=== PATIENT | female | born 2000 | race American Indian/Alaskan Native ===

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

== ENCOUNTER 2020-09-15 10:34 | Emergency (ER) | payer SELFPAY ==
[2020-09-15 12:48] LABS: Basophils % (Auto) 0.5 % (0.0-1.8); Eosinophils # (Auto) 0.1 K/mm3 (0.0-0.4); Eosinophils % (Auto) 0.6 % (0.0-4.3); Hemoglobin 10.6 gm/dl (10.1-14.3); Lymphocytes # (Auto) 1.5 K/mm3 (1.2-5.4); Lymphocytes % (Auto) 15.2 % (13.4-35.0); Mean Corpuscular HGB Conc 31 % (30-34); Mean Corpuscular Volume 71 fl (79-97); Monocytes # (Auto) 0.7 K/mm3 (0.0-0.8); Platelet Count 283 K/mm3 (140-440); Red Blood Count 4.78 M/mm3 (3.65-5.03); Red Cell Distribution Width 16.4 % (13.2-15.2)
[2020-09-15 13:02] LABS: Alanine Aminotransferase 10 units/L (7-56); Albumin 3.8 g/dL (3.9-5); Blood Urea Nitrogen 7 mg/dL (7-17); Calcium 9.2 mg/dL (8.4-10.2); Hemolysis Index 40
[2020-09-15 13:15] LABS: BUN/Creatinine Ratio 23
--- NOTE | 2020-09-15 13:23 | Ultrasound Report ---
Limited OB Ultrasound HISTORY: Lower abdominal pain with . TECHNIQUE: Grayscale and color imaging performed. COMPARISON: Limited OB ultrasound from 12/12/2019 FINDINGS: There is a single viable intrauterine gestation with transverse presentation. DONTAE is 11 cm. Placenta is seen posteriorly. No evidence of placenta previa on this exam. Overall EGA by ultrasound is 16 weeks and 3 days with estimated delivery date of 02/27/2021. Cervical length is 3.2 cm. Heart rate is 152 bpm. IMPRESSION: Single viable intrauterine gestation as above on this limited exam. Signer Name: Reyes Broderick MD Signed: 09/15/2020 1:18 PM Workstation Name: [id number]
[2020-09-15 13:28] LABS: Bacteria,Urine 1+ /HPF (Negative); Bilirubin,Urine NEG (Negative); Blood,Urine NEG (Negative); Color,Urine Yellow (Yellow); Mucus,Urine 1+ /HPF; Protein,Urine <15 mg/dL mg/dL (Negative)
--- NOTE | 2020-09-15 14:01 | Emergency Department Report ---
ED Female HPI - General Chief complaint: Abdominal Pain Time Seen by Provider: 09/15/20 12:22 Source: patient Mode of arrival: Ambulatory Limitations: No Limitations - History of Present Illness Initial comments: 19-year-old -[place]vian female who presents to the emergency room for mild abdominal cramping in her lower abdomen. Patient states that is intermittent nothing makes it worse nothing makes it better. Patient reports that she thinks she is 3 months . Last known menstrual period was sometime in May 2020. Patient states she did start taking vitamins but is not followed by any LOGISTICS CLERK. Patient reports she does not have any known drug allergies does not smoke, does not smoke marijuana or drink alcohol. Patient had last delivery approximately 9 months ago with insufficient care. Patient states that she does not have insurance and does not have an ID and is having difficulty obtaining insurance without those credentials. Patient reports her last delivery she delivered as a . She denies any vaginal discharge vaginal bleeding. Denies any chest pain shortness of breathing nausea vomiting diarrhea. MD Complaint: pelvic pain - Related Data Previous Rx's Medication Instructions Recorded Last Taken Type Ibuprofen [Motrin] 600 mg PO Q8H PRN #60 tablet 12/15/19 Unknown Rx oxyCODONE /ACETAMINOPHEN [Percocet 1 tab PO Q6HR PRN #20 tablet 12/15/19 Unknown Rx 5/325] Acetaminophen [Acetaminophen TAB] 1,000 mg PO Q6HR PRN #30 tablet 12/28/19 Unknown Rx cephALEXin [Keflex] 500 mg PO Q8HR 7 Days #21 cap 12/28/19 Unknown Rx Allergies Allergy/AdvReac Type Severity Reaction Status Date / Time shellfish derived Allergy Anaphylaxis Verified 08/13/19 22:09 ED Review of Systems ROS: Stated complaint: Other details as noted in HPI ED Past Medical Hx - Past Medical History Previous Medical History?: Yes Hx Hypertension: No Hx Diabetes: No Hx Deep Vein Thrombosis: No Hx Renal Disease: No Hx Sickle Cell Disease: No Hx Seizures: No Hx Asthma: Yes Hx HIV: No - Social History Smoking Status: Never Smoker Substance Use Type: None - Medications Home Medications: Home Medications Medication Instructions Recorded Confirmed Last Taken Type Ibuprofen [Motrin] 600 mg PO Q8H PRN #60 tablet 12/15/19 Unknown Rx oxyCODONE /ACETAMINOPHEN [Percocet 1 tab PO Q6HR PRN #20 tablet 12/15/19 Unknown Rx 5/325] Acetaminophen [Acetaminophen TAB] 1,000 mg PO Q6HR PRN #30 tablet 12/28/19 Unknown Rx cephALEXin [Keflex] 500 mg PO Q8HR 7 Days #21 cap 12/28/19 Unknown Rx ED Physical Exam - General Limitations: No Limitations General appearance: alert, in no apparent distress - Head Head exam: Present: atraumatic, normocephalic - Eye Eye exam: Present: normal appearance - ENT ENT exam: Present: mucous membranes moist - Neck Neck exam: Present: normal inspection, full ROM - Respiratory Respiratory exam: Present: normal lung sounds bilaterally. Absent: respiratory distress - Cardiovascular Cardiovascular Exam: Present: regular rate, normal rhythm. Absent: systolic murmur, diastolic murmur, rubs, gallop - GI/Abdominal GI/Abdominal exam: Present: soft, normal bowel sounds. Absent: distended, tende rness - Extremities Exam Extremities exam: Present: normal inspection - Back Exam Back exam: Present: normal inspection - Neurological Exam Neurological exam: Present: alert, oriented X3, normal gait - Psychiatric Psychiatric exam: Present: normal affect, normal mood - Skin Skin exam: Present: warm, dry, intact, normal color. Absent: rash ED Course Vital Signs 09/15/20 13:18 Temperature 98.2 F Pulse Rate 83 Respiratory 16 Rate Blood Pressure 112/65 [Left] O2 Sat by Pulse 100 Oximetry ED Medical Decision Making - Lab Data Result diagrams: 09/15/20 12:28 09/15/20 12:28 Laboratory Tests 09/15/20 09/15/20 09/15/20 12:28 12:28 12:28 WBC 10.0 RBC 4.78 Hgb 10.6 Hct 34.0 MCV 71 L MCH 22 L MCHC 31 RDW 16.4 H Plt Count 283 Lymph % (Auto) 15.2 [place] % (Auto) 7.0 Eos % (Auto) 0.6 Baso % (Auto) 0.5 Lymph # (Auto) 1.5 [place] # (Auto) 0.7 Eos # (Auto) 0.1 Baso # (Auto) 0.0 Seg Neutrophils % 76.7 H Seg Neutrophils # 7.7 Sodium 134 L Potassium 4.1 Chloride 100.2 Carbon Dioxide 20 L Anion Gap 18 BUN 7 Creatinine 0.3 L Estimated GFR > 60 BUN/Creatinine Ratio 23 Glucose 77 Calcium 9.2 Total Bilirubin 0.20 AST 19 ALT 10 Alkaline Phosphatase 87 Total Protein 7.2 Albumin 3.8 L Albumin/Globulin Ratio 1.1 HCG, Quant 72388 H Urine Color Urine Turbidity Urine pH Ur Specific [place]ucks Urine Protein Urine Glucose (UA) Urine Ketones Urine Blood Urine Nitrite Urine Bilirubin Urine Urobilinogen Ur Leukocyte Esterase Urine WBC (Auto) Urine RBC (Auto) U Epithel Cells (Auto) Urine Bacteria (Auto) Urine Mucus 09/15/20 Unknown WBC RBC Hgb Hct MCV MCH MCHC RDW Plt Count Lymph % (Auto) [place] % (Auto) Eos % (Auto) Baso % (Auto) Lymph # (Auto) [place] # (Auto) Eos # (Auto) Baso # (Auto) Seg Neutrophils % Seg Neutrophils # Sodium Potassium Chloride Carbon Dioxide Anion Gap BUN Creatinine Estimated GFR BUN/Creatinine Ratio Glucose Calcium Total Bilirubin AST ALT Alkaline Phosphatase Total Protein Albumin Albumin/Globulin Ratio HCG, Quant Urine Color Yellow Urine Turbidity Slightly-cloudy Urine pH 6.0 Ur Specific [place]ucks 1.023 Urine Protein <15 mg/dl Urine Glucose (UA) Neg Urine Ketones Neg Urine Blood Neg Urine Nitrite Neg Urine Bilirubin Neg Urine Urobilinogen 2.0 Ur Leukocyte Esterase Neg Urine WBC (Auto) 1.0 Urine RBC (Auto) 1.0 U Epithel Cells (Auto) 7.0 Urine Bacteria (Auto) 1+ Urine Mucus 1+ - Radiology Data Radiology results: report reviewed [facility] [address] [place] [address] Ultrasound Report Signed Patient: PARUL OLIVA MR#: [id number] : 2000 Acct:[id number] Age/Sex: 19 / F ADM Date: 09/15/20 Loc: ED Attending Dr: Ordering Physician: KAL WHITNEY Date of Service: 09/15/20 Procedure(s): US OB limited Accession Number(s): [id number] cc: KAL WHITNEY Limited OB Ultrasound HISTORY: Lower abdominal pain with . TECHNIQUE: Grayscale and color imaging performed. COMPARISON: Limited OB ultrasound from 12/12/2019 FINDINGS: There is a single viable intrauterine gestation with transverse pres entation. DONTAE is 11 cm. Placenta is seen posteriorly. No evidence of placenta previa on this exam. Overall EGA by ultrasound is 16 weeks and 3 days with estimated delivery date of 02/27/2021. Cervical length is 3.2 cm. Heart rate is 152 bpm. IMPRESSION: Single viable intrauterine gestation as above on this limited exam. Signer Name: Reyes Broderick MD Signed: 09/15/2020 1:18 PM Workstation Name: [id number] Transcribed By: KATERIN Dictated By: Reyes Broderick MD Electronically Authenticated By: Reyes Broderick MD Signed Date/Time: 09/15/201317 DD/ 16 TD/TT: Print Cancel - Medical Decision Making 19-year-old -[place]vian female who presents to the emergency room for mild abdominal cramping in her lower abdomen. Patient states that is intermittent nothing makes it worse nothing makes it better. Patient reports that she thinks she is 3 months . Last known menstrual period was sometime in May 2020. Patient states she did start taking vitamins but is not followed by any LOGISTICS CLERK. Patient reports she does not have any known drug allergies does not smoke, does not smoke marijuana or drink alcohol. Patient had last delivery approximately 9 months ago with insufficient care. Patient states that she does not have insurance and does not have an ID and is having difficulty obtaining insurance without those credentials. Patient reports her last delivery she delivered as a . She denies any vaginal discharge vaginal bleeding. Denies any chest pain shortness of breathing nausea vomiting diarrhea. Patient's ultrasound show that she is 16 weeks and 3 days . Urinalysis is negative for any infection blood work is negative for any anemia. Discussed with patient she needs to follow-up with the LOGISTICS CLERK. Continue with her vitamins. Only pain medicine can take is Tylenol. Increase your water intake. Critical care attestation.: If time is entered above; I have spent that time in minutes in the direct care of this critically ill patient, excluding procedure time. ED Disposition Clinical Impression: Qualifiers: Weeks of gestation: 16 weeks Qualified Code(s): Z3A.16 - 16 weeks gestation of Disposition: DC-01 TO HOME OR SELFCARE Is pt being admited?: No Does the pt Need Aspirin: No Condition: Stable Instructions: Abdominal Pain (ED), Second Trimester of , [id number], and Vaccinations, Care Additional Instructions: Patient's ultrasound show that she is 16 weeks and 3 days . Urinalysis is negative for any infection blood work is negative for any anemia. Discussed with patient she needs to follow-up with the LOGISTICS CLERK. Continue with her vitamins. Only pain medicine can take is Tylenol. Increase your water intake. Referrals: PRIMARY CAREMD [Primary Care Provider] - 3-5 Days [facility] [Provider Group] - 3-5 Days [facility] [Provider Group] - 3-5 Days [facility] [Provider Group] - 3-5 Days [facility] [Outside] - 3-5 Days Forms: Work/School Release Form(ED)
[2020-09-15 14:29] VITALS: BP 128/73
== END 2020-09-15 14:29 | disposition home or self-care (01) ==
LOC: ED 10:34 → TRG 10:34 → APU 10:35 → TRG 10:35 → EDSTATUS 10:53 → ED 14:29
DX: O26.892 Other specified pregnancy related conditions, second trimester (principal); R10.30 Lower abdominal pain, unspecified; Z79.899 Other long term (current) drug therapy; Z91.013 Allergy to seafood; Z3A.16 16 weeks gestation of pregnancy
CPT/HCPCS: 36415; 76815; 80053; 81001; 84702; 85025

== ENCOUNTER 2021-01-09 10:01 | Outpatient (CLI) | payer OTHER ==
[2021-01-09] MEDS ORDERED: LACTATED RINGERS 500 ML IV ONE (10:38)
[2021-01-09 11:40] LABS: Bacteria,Urine 1+ /HPF (Negative); Bilirubin,Urine NEG (Negative); Blood,Urine NEG (Negative); Color,Urine Yellow (Yellow); Mucus,Urine FEW /HPF
[2021-01-09] MEDS ORDERED: TERBUTALINE 1 MG/1 ML INJ SUB-Q ONE ×2 (11:54→15:43)
[2021-01-09] MEDS ORDERED: LACTATED RINGERS 1,000 ML IV ONE (12:30)
[2021-01-09] MEDS ORDERED: LACTATED RINGERS 1,000 ML IV SCH (13:00)
[2021-01-09 13:47] LABS: Amphetamine Screen,Urine Negative; Benzodiazepines Screen,Urine Negative; Cocaine Screen,Urine Negative; Methadone Screen,Urine Negative; Opiate Screen,Urine Negative
[2021-01-09] MEDS ORDERED: TERBUTALINE 1 MG/1 ML INJ ONE (14:08)
[2021-01-09 14:27] LABS: Cannabinoid Screen,Urine Positive
[2021-01-09 15:34] VITALS: BP 114/54
== END 2021-01-09 16:45 | disposition home or self-care (01) ==
LOC: TRG 10:01 → APU 10:03 → TRG 16:45
PROVIDERS: ATTEND Obstetrics & Gynecology
DX: O26.893 Other specified pregnancy related conditions, third trimester (principal); R10.30 Lower abdominal pain, unspecified; Z3A.33 33 weeks gestation of pregnancy
CPT/HCPCS: 59025; 80307; 81001; 87086; 96360; 96372; J3105; J7120; 96361

== ENCOUNTER 2021-09-25 19:49 | Emergency (ER) | payer MEDICAID ==
[2021-09-26 02:44] LABS: Mean Corpuscular HGB Conc 31 % (30-34); Mean Corpuscular Volume 71 fl (79-97); Platelet Count 232 K/mm3 (140-440); Red Blood Count 5.11 M/mm3 (3.65-5.03); Red Cell Distribution Width 18.2 % (13.2-15.2)
[2021-09-26 02:45] LABS: Hematocrit 36.3 % (30.3-42.9); Hemoglobin 11.1 gm/dl (10.1-14.3)
[2021-09-26 02:59] LABS: Blood Urea Nitrogen 6 mg/dL (7-17); Calcium 9.6 mg/dL (8.4-10.2); Hemolysis Index 4
[2021-09-26 03:03] LABS: Bilirubin,Urine Negative (Negative); Color,Urine Red (Yellow)
[2021-09-26 03:04] LABS: BUN/Creatinine Ratio 15
[2021-09-26 03:04] LABS: Blood,Urine Large (Negative); PH,Urine 7.5 (5.0-7.0); Urobilinogen,Urine 0.2 mg/dL (<2.0)
[2021-09-26 03:08] LABS: RBC,Urine > 182.0 /HPF (0.0-6.0)
[2021-09-26] MEDS ORDERED: ACETAMINOPHEN 325 MG TAB PO ONE (03:20)
--- NOTE | 2021-09-26 03:20 | Emergency Department Report ---
ED General Adult HPI - General Chief complaint: Abdominal Pain Stated complaint: ABD PAIN,BLOOD CLOTS Time Seen by Provider: 09/26/21 02:19 Source: patient, RN notes reviewed Mode of arrival: Stretcher Limitations: No Limitations - History of Present Illness Initial comments: The patient was evaluated in the emergency department for symptoms described in the history of present illness. He/she was evaluated in the context of the global COVID-19 pandemic, which necessitated consideration that the patient might be at risk for infection with the virus that causes COVID-19. Institutional protocols and algorithms that pertain to the evaluation of gilberto ents at risk for COVID-19 are in a state of rapid change based on information released by regulatory bodies including the CDC and federal and state organizations. These policies and algorithms were followed during the patient's care in the emergency department. Please note that these policies, procedures and recommendations changed on a rapid basis. This is a pleasant and cooperative 20-year-old female, who is 3, para 2, who believes that she is approximately 12 weeks , but has not established outpatient care, who has not had an outpatient ultrasound, presenting to the department today with cramping, and vaginal bleeding. No dysuria. No additional complaints. -: days(s) Location: abdomen Radiation: non-radiation Quality: aching Consistency: intermittent Improves with: rest Worsens with: movement - Related Data Previous Rx's Medication Instructions Recorded Last Taken Type Acetaminophen [Acetaminophen TAB] 1,000 mg PO Q6HR PRN #30 tablet 12/28/19 Unknown Rx Acetaminophen [Non-Aspirin Extra 500 mg PO Q6HR PRN #30 tablet 09/26/21 Unknown Rx Strength] Doxylamine Succinate/Vit B6 1 each PO QHS PRN #30 tablet. 09/26/21 Unknown Rx [Madeleine Valdovinos 10-10 mg Tablet] Emely Root [Emely] 250 mg PO QID PRN #30 capsule 09/26/21 Unknown Rx Allergies Allergy/AdvReac Type Severity Reaction Status Date / Time shellfish derived Allergy Anaphylaxis Verified 08/13/19 22:09 ED Review of Systems ROS: Stated complaint: ABD PAIN,BLOOD CLOTS Other details as noted in HPI Comment: All other systems reviewed and negative Gastrointestinal: abdominal pain Genitourinary: other (Vaginal bleeding and clots). denies: dysuria Psychiatric: anxiety ED Past Medical Hx - Past Medical History Hx Hypertension: No Hx Diabetes: No Hx Deep Vein Thrombosis: No Hx Renal Disease: No Hx Sickle Cell Disease: No Hx Seizures: No Hx Asthma: Yes (last attack as a child) Hx HIV: No - Social History Smoking Status: Never Smoker - Medications Home Medications: Home Medications Medication Instructions Recorded Confirmed Last Taken Type Acetaminophen [Acetaminophen TAB] 1,000 mg PO Q6HR PRN #30 tablet 12/28/19 Unknown Rx Acetaminophen [Non-Aspirin Extra 500 mg PO Q6HR PRN #30 tablet 09/26/21 Unknown Rx Strength] Doxylamine Succinate/Vit B6 1 each PO QHS PRN #30 tablet. 09/26/21 Unknown Rx [Diclegis Dr 10-10 mg Tablet] Emely Root [Emely] 250 mg PO QID PRN #30 capsule 09/26/21 Unknown Rx ED Physical Exam - General Limitations: No Limitations, Other (Patient eating potato chips and in no acute distress) General appearance: alert, in no apparent distress, obese - Head Head exam: Present: atraumatic, normocephalic - Eye Eye exam: Present: normal appearance, EOMI. Absent: nystagmus - ENT ENT exam: Present: normal exam, normal orophraynx, mucous membranes moist, normal external ear exam - Neck Neck exam: Present: normal inspection, full ROM. Absent: tenderness, meningismus - Respiratory Respiratory exam: Present: normal lung sounds bilaterally. Absent: respiratory distress, wheezes, rales, rhonchi, stridor, decreased breath sounds - Cardiovascular Cardiovascular Exam: Present: regular rate, normal rhythm, normal heart sounds. Absent: bradycardia, tachycardia, irregular rhythm, systolic murmur, diastolic murmur, rubs, gallop - GI/Abdominal GI/Abdominal exam: Present: soft. Absent: distended, tenderness, guarding, rebound, rigid, pulsatile mass - Extremities Exam Extremities exam: Present: normal inspection, full ROM, normal capillary refill, other (2+ pulses noted in the bilateral upper and lower extremities. There is no palpable cord. negative Homans sign. Muscular compartments are soft. The pelvis is stable.). Absent: pedal edema, calf tenderness - Back Exam Back exam: Present: normal inspection. Absent: tenderness, CVA tenderness (R), CVA tenderness (L), paraspinal tenderness, vertebral tenderness - Neurological Exam Neurological exam: Present: alert, oriented X3, other (No facial droop. Tongue midline. Extraocular movements intact bilaterally. Facial sensation intact to light touch in V1, V2, V3 distribution bilaterally. 5 and a 5 strength in 4 extremities. Sensation intact to light touch in 4 extremities.). Absent: motor sensory deficit - Psychiatric Psychiatric exam: Present: normal affect, normal mood - Skin Skin exam: Present: warm, dry, intact, normal color. Absent: rash ED Course Vital Signs 09/25/21 09/26/21 09/26/21 21:32 03:20 03:53 Temperature 98.1 F 98.3 F Pulse Rate 80 67 Respiratory 16 18 Rate Blood Pressure 115/48 131/51 [Right] O2 Sat by Pulse 99 100 Oximetry O2 Sat by Pulse 99 Oximetry [ Digit-Finger] - Reevaluation(s) Reevaluation #1: 09/26/21 03:53 Differential diagnosis, including but not limited to: Threatened miscarriage, complete miscarriage, incomplete miscarriage Assessment and plan: 20-year-old female, with positive hCG, lower abdominal cramping and vaginal bleeding, without rebound, guarding or peritoneal signs, who is currently eating potato chips, and has a soft benign abdomen. Suspect miscarriage. [id number] transabdominal ultrasound nondiagnostic. Quant hCG elevated. Rh+. Formal radiology transabdominal and intracavitary ultrasound are ordered. Discussed this with the patient. She is agreeable to this plan of care. N.p.o. at this time. Reassess after ultrasound has been performed and interpreted 09/26/21 05:12 Patient ambulating and in no acute distress. Ultrasound confirms intrauterine , and suggests demise. Extensive discussion had with patient. All questions answered. Return precautions are reviewed. Avoid heavy lifting, pelvic rest, Tylenol for pain, as needed nausea medication, follow-up with outpatient [facility]. - Procedure Description Procedures done: With the patient's consent, a [id number] transabdominal ultrasound is performed in the horizontal and vertical axis, using curvilinear probe, and the suprapubic transabdominal region. Uterus is minimally enlarged, with a saclike structure, but no definitive intrauterine is identified. Patient tolerated this procedure well. No obvious complications - Pulse Oximetry Interpretation Digit-Finger Initial Pulse Oximetry Readin O2 Sat by Pulse Oximetry: 99 Actions Taken: none ED Medical Decision Making - Lab Data Result diagrams: 09/26/21 02:24 09/26/21 02:24 Vital Signs 09/25/21 21:32 Temperature 98.1 F Pulse Rate 80 Respiratory 16 Rate Blood Pressure 115/48 [Right] O2 Sat by Pulse 99 Oximetry Lab Results 09/26/21 09/26/21 09/26/21 Range/Units 02:24 02:24 02:24 WBC 5.2 (4.5-11.0) K/mm3 RBC 5.11 H (3.65-5.03) M/mm3 Hgb 11.1 (10.1-14.3) gm/dl Hct 36.3 (30.3-42.9) % MCV 71 L (79-97) fl MCH 22 L (28-32) pg MCHC 31 (30-34) % RDW 18.2 H (13.2-15.2) % Plt Count 232 (140-440) K/mm3 Sodium 135 L (137-145) mmol/L Potassium 3.9 (3.6-5.0) mmol/L Chloride 100.1 (98-107) mmol/L Carbon Dioxide 23 (22-30) mmol/L Anion Gap 16 mmol/L BUN 6 L (7-17) mg/dL Creatinine 0.4 L (0.6-1.2) mg/dL Estimated GFR > 60 ml/min BUN/Creatinine Ratio 15 % Glucose 83 (65-100) mg/dL Calcium 9.6 (8.4-10.2) mg/dL HCG, Quant 58467 H (0-4) mIU/mL Urine Color (Yellow) Urine Turbidity (Clear) Urine pH (5.0-7.0) Ur Specific [place] (1.003-1.030) Urine Protein (Negative) mg/dL Urine Glucose (UA) (Negative) mg/dL Urine Ketones (Negative) mg/dL Urine Blood (Negative) Urine Nitrite (Negative) Urine Bilirubin (Negative) Urine Urobilinogen (<2.0) mg/dL Ur Leukocyte Esterase (Negative) Urine WBC (Auto) (0.0-6.0) /HPF Urine RBC (Auto) (0.0-6.0) /HPF U Epithel Cells (Auto) (0-13.0) /HPF Blood Type Antibody Screen 09/26/21 09/26/21 Range/Units 02:24 Unknown WBC (4.5-11.0) K/mm3 RBC (3.65-5.03) M/mm3 Hgb (10.1-14.3) gm/dl Hct (30.3-42.9) % MCV (79-97) fl MCH (28-32) pg MCHC (30-34) % RDW (13.2-15.2) % Plt Count (140-440) K/mm3 Sodium (137-145) mmol/L Potassium (3.6-5.0) mmol/L Chloride (98-107) mmol/L Carbon Dioxide (22-30) mmol/L Anion Gap mmol/L BUN (7-17) mg/dL Creatinine (0.6-1.2) mg/dL Estimated GFR ml/min BUN/Creatinine Ratio % Glucose (65-100) mg/dL Calcium (8.4-10.2) mg/dL HCG, Quant (0-4) mIU/mL Urine Color Red (Yellow) Urine Turbidity Slightly cloudy (Clear) Urine pH 7.5 H (5.0-7.0) Ur Specific [place] 1.010 (1.003-1.030) Urine Protein 30 mg/dl (Negative) mg/dL Urine Glucose (UA) Negative (Negative) mg/dL Urine Ketones Negative (Negative) mg/dL Urine Blood Large A (Negative) Urine Nitrite Negative (Negative) Urine Bilirubin Negative (Negative) Urine Urobilinogen 0.2 (<2.0) mg/dL Ur Leukocyte Esterase Trace (Negative) Urine WBC (Auto) 7.0 H (0.0-6.0) /HPF Urine RBC (Auto) > 182.0 (0.0-6.0) /HPF U Epithel Cells (Auto) 3.0 (0-13.0) /HPF Blood Type B POSITIVE Antibody Screen Negative - Radiology Data Radiology results: pending, report reviewed, image reviewed US OB transvaginal, US OB <= 14 weeks fetus INDICATION / CLINICAL INFORMATION: Abdominal cramping, and bleeding COMPARISON: None available. TECHNIQUE: Using a transcutaneous and endovaginal probe, multiple grayscale, color Doppler, and spectral Doppler images of the uterus and fetus were captured and stored. FINDINGS: Beta hCG 10,189. The uterus measures 11.4 x 6.0 x 6.9 cm. A single intrauterine gestational sac is demonstrated with small focus of increased echotexture that may reflect yolk sac versus pole. No heart tones are present. Adjacent to the margin of the gestational sac superiorly, there is an area of hypoechoic echotexture measuring 1.6 x 0.9 cm compatible with subchorionic hemorrhage. Mean gestational sac size of 29 mm (8 weeks 0 days) and mean crown-rump length of 2.9 mm (5 weeks 6 days) results in an estimated composite gestational age of 7 weeks 0 days. The right ovary measures 4.1 x 3.0 x 2.5 cm. Right ovary is unremarkable in appearance. The left ovary measures 5.3 x 3.8 x 3.4 cm. A 3.4 cm cystic structure within the left ovary may reflect corpus luteum cyst. Urinary bladder not well distended. IMPRESSION: 1. Single intrauterine gestational sac with disproportionate size of gestational sac compared to [place]-rump length. No heart tones. Findings are worrisome for demise. Short-term ultrasound follow-up recommended. 2. Small focus of subchorionic hemorrhage along the fundal margin of the gestational sac. Signer Name: Flex Bishop II, MD Signed: 09/26/2021 3:45 AM Workstation Name: [id number] Critical care attestation.: If time is entered above; I have spent that time in minutes in the direct care of this critically ill patient, excluding procedure time. ED Disposition Clinical Impression: Miscarriage, Subchorionic hemorrhage Disposition: 01 HOME / SELF CARE / HOMELESS Is pt being admited?: No Does the pt Need Aspirin: No Condition: Good Instructions: Abdominal Pain (ED), Activity Restriction During , Subchorionic Hematoma, Miscarriage Additional Instructions: Patient has ultrasound which demonstrates intrauterine , but is very suggestive of demise. Patient will likely continue to have cramping and bleeding. Rest and avoid heavy lifting and strenuous physical activity. Avoid sex and sexual activity. Take the pain medication, nausea medication as needed and directed. Follow-up as soon as possible with an outpatient [facility] physician. Please return to the emergency room right away with new pain, worsened pain, migration of pain, projectile vomiting, change in mental status, confusion, inability tolerate liquid feeds, new, worsened or different symptoms not present on the initial emergency room evaluation Referrals: [facility] [Provider Group] - 3-5 Days [facility] [Provider Group] - 3-5 Days [facility] [Provider Group] - 3-5 Days Forms: Work/School Release Form(ED)
--- NOTE | 2021-09-26 04:50 | Ultrasound Report ---
US OB transvaginal, US OB <= 14 weeks fetus INDICATION / CLINICAL INFORMATION: Abdominal cramping, and bleeding COMPARISON: None available. TECHNIQUE: Using a transcutaneous and endovaginal probe, multiple grayscale, color Doppler, and spect ral Doppler images of the uterus and fetus were captured and stored. FINDINGS: Beta hCG 10,189. The uterus measures 11.4 x 6.0 x 6.9 cm. A single intrauterine gestational sac is demonstrated with s mall focus of increased echotexture that may reflect yolk sac versus pole. No heart tones are present. Adjacent to the margin of the gestational sac superiorly, there is an area of hypoechoic echotexture measuring 1.6 x 0.9 cm compatible with subchorionic hemorrhage. Mean gestational sac size of 29 mm (8 weeks 0 days) and mean crown-rump length of 2.9 mm (5 weeks 6 d ays) results in an estimated composite gestational age of 7 weeks 0 days. The right ovary measures 4.1 x 3.0 x 2.5 cm. Right ovary is unremarkable in appearance. The left ovary measures 5.3 x 3.8 x 3.4 cm. A 3.4 cm cystic structure within the left ovary may refle ct corpus luteum cyst. Urinary bladder not well distended. IMPRESSION: 1. Single intrauterine gestational sac with disproportionate size of gestational sac compared to [place] n-rump length. No heart tones. Findings are worrisome for demise. Short-term ultrasound f ollow-up recommended. 2. Small focus of subchorionic hemorrhage along the fundal margin of the gestational sac. Signer Name: Flex Bishop II, MD Signed: 09/26/2021 4:45 AM Workstation Name: [id number]
[2021-09-26 06:10] VITALS: BP 123/59
== END 2021-09-26 05:50 | disposition home or self-care (01) ==
LOC: ED 19:49
DX: O03.9 Complete or unspecified spontaneous abortion without complication (principal); O46.8X1 Other antepartum hemorrhage, first trimester; Z3A.12 12 weeks gestation of pregnancy; J45.909 Unspecified asthma, uncomplicated; Z91.013 Allergy to seafood
CPT/HCPCS: 36415; 76801; 76817; 80048; 81001; 84702; 85027; 86850; 86900; 86901; 99284